=== PATIENT | male | born 1945 | race African-American/Black ===

== ENCOUNTER 2018-10-29 21:59 | Inpatient (IN) ==
[2018-10-30] MEDS ORDERED: KETOROLAC 30 MG/1 ML VIAL IV STA (01:04)
[2018-10-30 01:58] LABS: Alanine Aminotransferase 55 U/L (16-61); Albumin 3.2 G/DL (3.4-5.0); Alkaline Phosphatase 111 U/L (45-117); Aspartate Amino Transferase 64 U/L (0-37); Bilirubin,Total < 0.39 MG/DL (0.2-1.0); Blood Urea Nitrogen 16 MG/DL (7-18); Calcium 8.5 MG/DL (8.5-10.1); Glucose 227 MG/DL (74-106); Osmolality,Calculated 286.4 MOS/KG (273-304); Potassium 4.7 MMOL/L (3.5-5.1); Sodium 140 MMOL/L (136-145); Total Protein 7.7 G/DL (6.4-8.3)
[2018-10-30 02:08] LABS: Basophils % 0.3 % (0.0-0.8); Eosinophils # 0.1 10*3/uL (0.0-0.87); Eosinophils % 0.8 % (0.00-10.9); Hematocrit 35.8 VOL% (42.0-52.0); Hemoglobin 10.4 GM/DL (14.0-18.0); Immature Granulocytes % 0.3 %; Immature Granulocytes Absolute 0.02 #; Lymphocytes # 1.4 10*3/uL (1.4-4.0); Lymphocytes % 23.6 % (21.2-54.2); Mean Corpuscular HGB Conc 29.1 GM/DL (32-36); Mean Corpuscular Hemoglobin 23 PG (27-34); Mean Corpuscular Volume 80.3 FL (87-102); Mean Platelet Volume 10.8 FL (9.6-12.0); Monocytes # 0.6 10*3/uL (0.11-0.8); Monocytes % 9.4 % (1.7-12.7); Neutrophils # 3.9 10*3/uL (1.4-7.4); Neutrophils % 65.6 % (38.7-73.9); Platelet Count 156 T/CUMM (130-400); Red Blood Count 4.46 MC/CUMM (3.8-5.5); White Blood Count 5.9 T/CUMM (4-12)
[2018-10-30 02:15] LABS: Polychromasia Few
[2018-10-30 02:16] LABS: Ovalocytes 1+; Platelet Estimate Adequate
[2018-10-30 03:29] LABS: Apearance,Urine CLEAR (Clear); Bacteria,Urine Occasional /HPF (Few); Bilirubin,Urine Negative (Negative); Blood, Urine Negative (Negative); Glucose,Urine (UA) 50 mg/dL (Negative); Ketones,Urine Negative (Negative); Mucus,Urine Occasional /LPF (Occasional); Nitrite,Urine Negative (Negative); Protein,Urine 100 MG/DL; RBC,Urine 3 /HPF (0-4); Urine Color Yellow (Yellow); Urine Specific Gravity 1.018 (1.001-1.035); Urine Urobilinogen < 2.0 EU/DL (0.2-1.0); WBC,Urine 8 /HPF (0-6)
[2018-10-30] MEDS ORDERED: ENOXAPARIN 30 MG/0.3 ML SYRINGE SUBCUT STA (05:05)
[2018-10-30] MEDS ORDERED: ENOXAPARIN 100 MG/ML SYRINGE SUBCUT ONE (05:07)
[2018-10-30] MEDS ORDERED: ONDANSETRON 4 MG/2 ML VIAL IV PRN (06:09)
[2018-10-30] MEDS ORDERED: ALBUTEROL 2.5 MG/3 ML NEB RESP TX PRN (06:09)
[2018-10-30] MEDS ORDERED: DEXTROSE 50% 25 GM/50 ML VIAL IV PRN (06:16)
[2018-10-30] MEDS ORDERED: GLUCAGON 1 MG VIAL IM PRN (06:16)
[2018-10-30] MEDS: INSULIN REGULAR 100 UNIT/ML SUBCUT SCH ×4 (08:15→20:28)
[2018-10-30] MEDS ORDERED: CHLORTHALIDONE 25 MG TABLET PO SCH (09:00)
[2018-10-30] MEDS ORDERED: ALTEPLASE 2 MG VIAL ONE (09:28)
[2018-10-30] MEDS: GABAPENTIN 600 MG TABLET PO SCH ×3 (09:29→20:39)
[2018-10-30] MEDS: PANTOPRAZOLE 40 MG TABLET PO SCH (09:30)
[2018-10-30] MEDS ORDERED: ALTEPLASE 6 MG in SODIUM CHLORIDE 0.9% 120 ML IV SCH (09:30)
[2018-10-30] MEDS ORDERED: SODIUM CHLORIDE 0.9% 1,000 ML IV SCH ×2 (09:30)
[2018-10-30] MEDS ORDERED: ASPIRIN CHEW 81 MG TABLET PO ONE (09:32)
[2018-10-30] MEDS ORDERED: LISINOPRIL 10 MG TABLET ONE (09:32)
[2018-10-30] MEDS: amLODIPine 10 MG TABLET PO SCH (09:38)
[2018-10-30] MEDS: LISINOPRIL 20 MG TABLET PO SCH (09:38)
[2018-10-30] MEDS: METOPROLOL SUCCINATE XL 100 MG TABLET PO SCH (09:38)
[2018-10-30] MEDS: ASPIRIN EC 81 MG TABLET PO SCH (09:38)
[2018-10-30] MEDS ORDERED: LIDOCAINE 1% 20 ML VIAL ONE (09:50)
[2018-10-30] MEDS ORDERED: HYDROmorphone 2 MG/1 ML VIAL ONE (10:07)
[2018-10-30] MEDS ORDERED: MIDAZOLAM 2 MG/2 ML VIAL ONE (10:08)
[2018-10-30] MEDS ORDERED: ENOXAPARIN 30 MG/0.3 ML SYRINGE ONE (11:10)
[2018-10-30] MEDS ORDERED: HEPARIN DRIP 25,000 UNITS/500 ML PREMIX IV SCH ×2 (12:00)
[2018-10-30 12:55] LABS: INR 1.1; Partial Thromboplastin Time 33.7 SECS (0-40)
[2018-10-30 16:08] LABS: INR 1.1
[2018-10-30] MEDS ORDERED: ENOXAPARIN 120 MG/0.8 ML SYRINGE SUBCUT SCH (17:30)
[2018-10-30] MEDS: ATORVASTATIN 80 MG TABLET PO SCH (20:39)
[2018-10-30] MEDS: APIXABAN 5 MG TABLET PO SCH (20:39)
[2018-10-31 04:56] LABS: INR 1.1
[2018-10-31 05:13] LABS: Calcium 8.3 MG/DL (8.5-10.1); Osmolality,Calculated 278.5 MOS/KG (273-304); Potassium 4.5 MMOL/L (3.5-5.1)
[2018-10-31 05:37] LABS: Basophils % 0.5 % (0.0-0.8); Eosinophils # 0.1 10*3/uL (0.0-0.87); Eosinophils % 2.6 % (0.00-10.9); Hematocrit 32.9 VOL% (42.0-52.0); Immature Granulocytes % 0.3 %; Immature Granulocytes Absolute 0.01 #; Lymphocytes # 1.2 10*3/uL (1.4-4.0); Lymphocytes % 30.5 % (21.2-54.2); Mean Corpuscular HGB Conc 28.9 GM/DL (32-36); Mean Corpuscular Hemoglobin 24 PG (27-34); Mean Corpuscular Volume 81.6 FL (87-102); Mean Platelet Volume 10.8 FL (9.6-12.0); Monocytes # 0.5 10*3/uL (0.11-0.8); Monocytes % 12.3 % (1.7-12.7); NRBC # 0.02 10*3/uL; Neutrophils # 2.1 10*3/uL (1.4-7.4); Neutrophils % 53.8 % (38.7-73.9); Platelet Count 138 T/CUMM (130-400); Red Blood Count 4.03 MC/CUMM (3.8-5.5); Red Cell Distribution Width 20.6 % (9.3-17.3); White Blood Count 3.8 T/CUMM (4-12)
[2018-10-31 05:39] LABS: Hemoglobin 9.5 GM/DL (14.0-18.0)
[2018-10-31 06:17] LABS: Hypochromasia 1+
[2018-10-31 06:18] LABS: Microcytosis 1+; Ovalocytes Slight; Platelet Estimate Adequate
[2018-10-31] MEDS: INSULIN REGULAR 100 UNIT/ML SUBCUT SCH ×4 (07:07→21:41)
[2018-10-31] MEDS: METOPROLOL SUCCINATE XL 100 MG TABLET PO SCH (10:00)
[2018-10-31] MEDS: LISINOPRIL 20 MG TABLET PO SCH (10:00)
[2018-10-31] MEDS: GABAPENTIN 600 MG TABLET PO SCH ×3 (10:00→21:37)
[2018-10-31] MEDS: ASPIRIN EC 81 MG TABLET PO SCH (10:00)
[2018-10-31] MEDS: PANTOPRAZOLE 40 MG TABLET PO SCH (10:00)
[2018-10-31] MEDS: APIXABAN 5 MG TABLET PO SCH ×2 (10:00→21:39)
[2018-10-31] MEDS: amLODIPine 10 MG TABLET PO SCH (10:04)
[2018-10-31 12:29] LABS: Albumin 2.7 G/DL (3.4-5.0); Bilirubin,Total 0.6 MG/DL (0.2-1.0); Calcium 8.2 MG/DL (8.5-10.1); Osmolality,Calculated 277.8 MOS/KG (273-304); Potassium 4.4 MMOL/L (3.5-5.1); Total Protein 6.5 G/DL (6.4-8.3)
[2018-10-31] MEDS: ATORVASTATIN 80 MG TABLET PO SCH (21:37)
[2018-11-01 05:00] LABS: Basophils % 0.5 % (0.0-0.8); Eosinophils # 0.1 10*3/uL (0.0-0.87); Eosinophils % 1.6 % (0.00-10.9); Hematocrit 30.5 VOL% (42.0-52.0); Immature Granulocytes % 0.2 %; Immature Granulocytes Absolute 0.01 #; Lymphocytes # 1.4 10*3/uL (1.4-4.0); Lymphocytes % 33.4 % (21.2-54.2); Mean Corpuscular HGB Conc 28.5 GM/DL (32-36); Mean Corpuscular Hemoglobin 23 PG (27-34); Mean Corpuscular Volume 81.8 FL (87-102); Mean Platelet Volume 10.4 FL (9.6-12.0); Monocytes # 0.6 10*3/uL (0.11-0.8); Monocytes % 13.8 % (1.7-12.7); Neutrophils # 2.2 10*3/uL (1.4-7.4); Neutrophils % 50.5 % (38.7-73.9); Platelet Count 150 T/CUMM (130-400); Red Blood Count 3.73 MC/CUMM (3.8-5.5); Red Cell Distribution Width 20.5 % (9.3-17.3); White Blood Count 4.3 T/CUMM (4-12)
[2018-11-01 05:18] LABS: Calcium 7.9 MG/DL (8.5-10.1); Hemoglobin 8.9 GM/DL (14.0-18.0); Osmolality,Calculated 284.3 MOS/KG (273-304)
[2018-11-01 06:23] LABS: Anisocytosis 1+; Platelet Estimate Adequate; Poikilocytosis Slight
[2018-11-01] MEDS: amLODIPine 10 MG TABLET PO SCH (08:53)
[2018-11-01] MEDS: GABAPENTIN 600 MG TABLET PO SCH ×2 (08:53→14:44)
[2018-11-01] MEDS: PANTOPRAZOLE 40 MG TABLET PO SCH (08:53)
[2018-11-01] MEDS: APIXABAN 5 MG TABLET PO SCH (08:53)
[2018-11-01] MEDS: ASPIRIN EC 81 MG TABLET PO SCH (08:53)
[2018-11-01] MEDS: METOPROLOL SUCCINATE XL 100 MG TABLET PO SCH (08:53)
[2018-11-01] MEDS: LISINOPRIL 20 MG TABLET PO SCH (08:54)
[2018-11-01] MEDS: INSULIN REGULAR 100 UNIT/ML SUBCUT SCH ×2 (09:23→14:08)
[2018-11-01 16:09] VITALS: BP 129/74
== END 2018-11-01 16:53 | disposition home or self-care (01) | DRG 176 ==
LOC: N.ED 21:59 → SUATTDRO 10-30 05:52 → N.EDINP 10-30 05:52 → N.CC 10-30 09:45 → N.TELES 10-31 17:10
PROVIDERS: ADMIT Family Medicine; ATTEND Hospitalist

== ENCOUNTER 2019-08-23 14:31 | Inpatient (IN) ==
[2019-08-23] MEDS ORDERED: methylPREDNISolone SOD SUC 125 MG/2 ML VIAL IV STA (15:02)
[2019-08-23] MEDS ORDERED: ONDANSETRON 4 MG/2 ML VIAL IV STA (15:02)
[2019-08-23] MEDS ORDERED: LEVOFLOXACIN INJ 750 MG in PREMIX 1 EACH IV STA (15:02)
[2019-08-23] MEDS ORDERED: hydrALAZINE 20 MG/1 ML VIAL IV STA (15:08)
[2019-08-23] MEDS ORDERED: ALBUTEROL 2.5 MG/3 ML NEB RESP TX SCH (15:30)
[2019-08-23 16:19] LABS: Basophils % 0.2 % (0.0-0.8); Eosinophils % 0.2 % (0.00-10.9); Hematocrit 26.8 VOL% (42.0-52.0); Hemoglobin 7.7 GM/DL (14.0-18.0); Immature Granulocytes % 0.5 %; Immature Granulocytes Absolute 0.06 #; Lymphocytes % 8.2 % (21.2-54.2); Mean Corpuscular HGB Conc 28.7 GM/DL (32-36); Mean Corpuscular Volume 79.1 FL (87-102); Mean Platelet Volume 10.3 FL (9.6-12.0); NRBC # 0.02 10*3/uL; Neutrophils % 83.9 % (38.7-73.9); Platelet Count 318 T/CUMM (130-400); Red Blood Count 3.39 MC/CUMM (3.8-5.5); Red Cell Distribution Width 15.6 % (9.3-17.3); White Blood Count 12.2 T/CUMM (4-12)
[2019-08-23 16:26] LABS: PT Patient Result 11.2 SECS (9.6-12.2); Partial Thromboplastin Time 24.5 SECS (20.8-36.0)
[2019-08-23 16:28] LABS: Apearance,Urine CLEAR (Clear); Bilirubin,Urine Negative (Negative); Blood, Urine Negative (Negative); Glucose,Urine (UA) Negative (Negative); Ketones,Urine Negative (Negative); Mucus,Urine Occasional /LPF (Occasional); Nitrite,Urine Negative (Negative); Protein,Urine Negative; RBC,Urine 1 /HPF (0-4); Squamous Epithelial Cell,Urine Occasional /HPF (0-10); Urine Color Yellow (Yellow); Urine Specific Gravity 1.014 (1.001-1.035); WBC,Urine 1 /HPF (0-6)
[2019-08-23 16:40] LABS: Alanine Aminotransferase 18 U/L (16-61); Albumin 3.1 G/DL (3.4-5.0); Alkaline Phosphatase 76 U/L (45-117); Aspartate Amino Transferase 35 U/L (0-37); Blood Urea Nitrogen 16 MG/DL (7-18); Calcium 8.6 MG/DL (8.5-10.1); Estimated Glom Filtration Rate 61 ML/MIN; Glucose 136 MG/DL (74-106); Osmolality,Calculated 279.5 MOS/KG (273-304); Total Protein 8.1 G/DL (6.4-8.3); Troponin I < 0.015 NG/ML (0.00-0.045)
[2019-08-23] MEDS ORDERED: DEXTROSE 10% 25 GM/250 ML BAG IV PRN ×2 (17:57→17:58)
[2019-08-23] MEDS ORDERED: GLUCAGON 1 MG VIAL IM PRN ×2 (17:57→17:58)
[2019-08-23] MEDS ORDERED: ONDANSETRON 4 MG/2 ML VIAL IV PRN (17:58)
[2019-08-23] MEDS ORDERED: LACTULOSE 20 GM/30 ML UDCUP PO PRN (17:58)
[2019-08-23] MEDS ORDERED: DOCUSATE SODIUM 100 MG CAPSULE PO PRN (17:58)
[2019-08-23] MEDS: ALBUTEROL/IPRATROPIUM 3 ML NEB RESP TX SCH (20:06)
[2019-08-23] MEDS: GABAPENTIN 600 MG TABLET PO SCH (20:46)
[2019-08-23] MEDS: ACETAMINOPHEN 500 MG TABLET PO PRN (20:47)
[2019-08-23] MEDS: INSULIN REGULAR 100 UNIT/ML SUBCUT SCH (20:48)
[2019-08-23] MEDS ORDERED: APIXABAN 5 MG TABLET PO SCH (21:00)
[2019-08-24] MEDS: ALBUTEROL/IPRATROPIUM 3 ML NEB RESP TX SCH ×4 (00:16→19:50)
[2019-08-24 04:21] LABS: Basophils % 0.1 % (0.0-0.8); Hematocrit 23.4 VOL% (42.0-52.0); Hemoglobin 6.8 GM/DL (14.0-18.0); Immature Granulocytes % 0.9 %; Immature Granulocytes Absolute 0.17 #; Lymphocytes # 0.9 10*3/uL (1.4-4.0); Mean Corpuscular HGB Conc 29.1 GM/DL (32-36); Mean Corpuscular Volume 78.3 FL (87-102); Monocytes % 2.7 % (1.7-12.7); Neutrophils % 91.3 % (38.7-73.9); Platelet Count 304 T/CUMM (130-400); Red Blood Count 2.99 MC/CUMM (3.8-5.5); Red Cell Distribution Width 15.8 % (9.3-17.3); White Blood Count 18.1 T/CUMM (4-12)
[2019-08-24 04:38] LABS: Calcium 8.7 MG/DL (8.5-10.1); Osmolality,Calculated 285.1 MOS/KG (273-304)
[2019-08-24 04:45] LABS: Band Neutrophils 5 % (0-10); Hypochromasia 1+; Lymphocytes 6 % (20-55); Platelet Estimate Adequate; Segmented Neutrophils 88 % (50-85); Total Cells Counted 100
[2019-08-24 04:47] LABS: % Iron Saturation 5.9 % (18-50)
[2019-08-24 06:25] LABS: Sedimentation Rate-Westergren 125 MM/HR (0-20)
[2019-08-24] MEDS ORDERED: SODIUM CHLORIDE 0.9% 1,000 ML IV PRN (07:57)
[2019-08-24] MEDS: INSULIN REGULAR 100 UNIT/ML SUBCUT SCH ×4 (08:25→21:23)
[2019-08-24 08:57] LABS: Hemoglobin A1 (Alkaline) 97.9 % (96.5-98.5); Hemoglobin A2 (Alkaline) 2.1 % (1.5-3.5)
[2019-08-24] MEDS ORDERED: INSULIN GLARGINE 100 UNIT/ML SUBCUT SCH (09:00)
[2019-08-24] MEDS ORDERED: IRON SUCROSE 300 MG in SODIUM CHLORIDE 0.9% 100 ML IV ONE (09:46)
[2019-08-24] MEDS: ASPIRIN EC 81 MG TABLET PO SCH (10:07)
[2019-08-24] MEDS: CHLORTHALIDONE 25 MG TABLET PO SCH (10:07)
[2019-08-24] MEDS: GABAPENTIN 600 MG TABLET PO SCH ×3 (10:08→21:24)
[2019-08-24] MEDS: carvediloL 12.5 MG TABLET PO SCH (10:08)
[2019-08-24] MEDS: LEVOFLOXACIN INJ 500 MG in PREMIX 1 EACH IV SCH ×3 (10:09→21:23)
[2019-08-24] MEDS: MEROPENEM 500 MG in SODIUM CHLORIDE 0.9% 100 ML IV SCH ×3 (10:30→22:46)
[2019-08-24] MEDS ORDERED: ENOXAPARIN 40 MG/0.4 ML SYRINGE SUBCUT SCH (16:00)
[2019-08-24 17:18] LABS: Folate 6.2 NG/ML (5.4-24.0); Vitamin B12 276 PG/ML (211-911)
[2019-08-25] MEDS: ALBUTEROL/IPRATROPIUM 3 ML NEB RESP TX SCH ×4 (00:12→18:46)
[2019-08-25] MEDS: MEROPENEM 500 MG in SODIUM CHLORIDE 0.9% 100 ML IV SCH ×4 (04:09→21:47)
[2019-08-25 04:44] LABS: Basophils % 0.1 % (0.0-0.8); Hemoglobin 8.3 GM/DL (14.0-18.0); Immature Granulocytes % 0.7 %; Immature Granulocytes Absolute 0.11 #; Lymphocytes # 1.2 10*3/uL (1.4-4.0); Lymphocytes % 7.2 % (21.2-54.2); Mean Corpuscular HGB Conc 29.6 GM/DL (32-36); Mean Corpuscular Volume 79.8 FL (87-102); Mean Platelet Volume 9.8 FL (9.6-12.0); NRBC # 0.03 10*3/uL; Platelet Count 310 T/CUMM (130-400); Red Blood Count 3.51 MC/CUMM (3.8-5.5); Red Cell Distribution Width 15.7 % (9.3-17.3)
[2019-08-25 05:09] LABS: Calcium 8.5 MG/DL (8.5-10.1)
[2019-08-25] MEDS: INSULIN REGULAR 100 UNIT/ML SUBCUT SCH ×4 (07:53→21:45)
[2019-08-25] MEDS: LACTATED RINGERS 1,000 ML IV SCH (08:00)
[2019-08-25] MEDS ORDERED: GLIMEPIRIDE 2 MG TABLET PO SCH ×2 (08:00→15:31)
[2019-08-25] MEDS ORDERED: LIDOCAINE 2% 5 ML VIAL ONE (10:00)
[2019-08-25] MEDS ORDERED: propofoL 200 MG/20 ML VIAL IV ONE (10:00)
[2019-08-25] MEDS: CHLORTHALIDONE 25 MG TABLET PO SCH (11:14)
[2019-08-25] MEDS: ASPIRIN EC 81 MG TABLET PO SCH (11:14)
[2019-08-25] MEDS: GABAPENTIN 600 MG TABLET PO SCH ×3 (11:14→21:47)
[2019-08-25] MEDS: LEVOFLOXACIN INJ 500 MG in PREMIX 1 EACH IV SCH (11:15)
[2019-08-25] MEDS: carvediloL 12.5 MG TABLET PO SCH (11:15)
[2019-08-25] MEDS: hydrALAZINE 25 MG TABLET PO SCH (21:47)
[2019-08-25] MEDS: APIXABAN 5 MG TABLET PO SCH (21:47)
[2019-08-25] MEDS: ACETAMINOPHEN 500 MG TABLET PO PRN (21:47)
[2019-08-26] MEDS: ALBUTEROL/IPRATROPIUM 3 ML NEB RESP TX SCH ×3 (00:35→13:37)
[2019-08-26 05:46] LABS: Basophils % 0.4 % (0.0-0.8); Eosinophils % 0.3 % (0.00-10.9); Hematocrit 31.4 VOL% (42.0-52.0); Hemoglobin 9.2 GM/DL (14.0-18.0); Immature Granulocytes % 0.8 %; Immature Granulocytes Absolute 0.08 #; Lymphocytes # 1.8 10*3/uL (1.4-4.0); Mean Corpuscular HGB Conc 29.3 GM/DL (32-36); Mean Corpuscular Volume 81.3 FL (87-102); Mean Platelet Volume 9.3 FL (9.6-12.0); Monocytes % 7.3 % (1.7-12.7); NRBC # 0.03 10*3/uL; Neutrophils % 73.2 % (38.7-73.9); Platelet Count 314 T/CUMM (130-400); Red Blood Count 3.86 MC/CUMM (3.8-5.5); Red Cell Distribution Width 16.2 % (9.3-17.3); White Blood Count 10.1 T/CUMM (4-12)
[2019-08-26 06:01] LABS: Calcium 8.7 MG/DL (8.5-10.1); Osmolality,Calculated 282.4 MOS/KG (273-304)
[2019-08-26] MEDS: MEROPENEM 500 MG in SODIUM CHLORIDE 0.9% 100 ML IV SCH ×2 (06:10→11:04)
[2019-08-26] MEDS: ACETAMINOPHEN 500 MG TABLET PO PRN (07:33)
[2019-08-26] MEDS: INSULIN REGULAR 100 UNIT/ML SUBCUT SCH ×2 (07:40→12:22)
[2019-08-26] MEDS: LACTATED RINGERS 1,000 ML IV SCH (09:00)
[2019-08-26] MEDS: LEVOFLOXACIN INJ 500 MG in PREMIX 1 EACH IV SCH (09:39)
[2019-08-26] MEDS: hydrALAZINE 25 MG TABLET PO SCH (09:41)
[2019-08-26] MEDS: ASPIRIN EC 81 MG TABLET PO SCH (09:41)
[2019-08-26] MEDS: APIXABAN 5 MG TABLET PO SCH (09:41)
[2019-08-26] MEDS: carvediloL 12.5 MG TABLET PO SCH (09:41)
[2019-08-26] MEDS: GABAPENTIN 600 MG TABLET PO SCH ×2 (09:41→14:32)
[2019-08-26] MEDS: CHLORTHALIDONE 25 MG TABLET PO SCH (09:41)
[2019-08-26 12:13] VITALS: BP 131/65
== END 2019-08-26 16:00 | disposition home or self-care (01) | DRG 194 ==
LOC: N.ED 14:31 → SUATTDRO 17:40 → N.EDINP 17:40 → N.5E 18:23
PROVIDERS: ADMIT Hospitalist; ATTEND Internal Medicine Cardiovascular Disease